=== PATIENT | female | born 1995 | race Caucasian/White ===

== ENCOUNTER 2021-05-22 15:33 | Emergency (ER) | payer BC, SELFPAY ==
[2021-05-22 16:03] VITALS: BP 138/92; PULSE 120; RESP 16; TEMP 36.7; O2SAT 100; BMI 35.4
--- NOTE | 2021-05-22 19:10 | ED_ITS ---
HPI - Female Genitourinary General: Chief complaint: Urogenital-Female Stated complaint: Bulge in gental area after bowel movement Time Seen by Provider: 05/22/21 19:09 History of Present Illness: Ms. Malik is a 25-year-old lady with history of diabetes and three previous childbirths who presents emerged department due to genital complaint. She reports being in her baseline health and is supposed to start her period 2 days ago. She had light spotting over the past few days and then heavier bleeding today associated with cramping which she believed to be the start of her period. She was in the bathroom earlier and had the urge to defecate. She removed a tampon and had sudden onset of worsening pain in addition to feeling a pressure and bulge sensation. She reached down and felt a bulge externally which is new for her. She had her [id number] look and she saw a bulge and thought it looked like the [id number] history of bladder prolapse. Since that time she has had moderate intensity generalized aching and cramping in the abdomen. Some radiation to the back. Denies similar episodes in the past. Denies other recent changes in health, exacerbating, or relieving factors. She has not had bowel movement or urination since this time. Onset (ago): hour(s) Location of symptoms: vaginal Severity: severe Quality of pain: cramping and aching Consistency: intermittent Vaginal bleeding: scant Associated symptoms: Reports headache(s) Patient : No Date of Last Menstrual Period: 05/17/21 Review of Systems General: Reports: 10 or more systems reviewed and unremarkable except in HPI and below Neuro: Reports: headache(s) PFSH ED PFSH: Medical History Diabetes Social History Smoking and tobacco status: never smoked Female Reproductive History: Date of last menstrual period: 05/17/21 Physical Exam Const: COMMON NORMALS: alert GENERAL APPEARANCE: cooperative and well developed HENMT: COMMON NORMALS: normocephalic and atraumatic HEAD & SCALP: normocephalic and atraumatic Eye: COMMON NORMALS: conjunctivae normal CONJUNCTIVA: Yes conjunctivae normal SCLERA: sclerae normal Neck/C-Spine: COMMON NORMALS: supple GENERAL: Yes trachea midline Resp: COMMON NORMALS: normal respiratory effort EFFORT & INSPECTION: Yes able to speak in complete sentences Cardio: COMMON NORMALS: regular rate and regular rhythm RATE: regular rate RHYTHM: regular rhythm GI: COMMON NORMALS: Soft to palpation PALPATION: Yes Soft to palpation, Yes Tenderness to palpation present (GI) (Mild lower abdomen), No Guarding due to palpation present (GI) and No Rigid due to palpation PERCUSSION: normal to percussion : OTHER: Performed with pool lifeguard present. The patient did not have identifiable bulge though she does report that she felt like it had reduced. There is some blood in the vaginal vault. No bleeding identified from cervical os and the os appears closed. There are no identified tears of the vaginal wall. No evidence of prolapse with Valsalva. Extremity: GENERAL: Yes normal exam except as noted and No edema Neuro: COMMON NORMALS: moves all extremities SENSORIUM/ORIENTATION: Yes alert and No Orientation impaired Psych: COMMON NORMALS: mental status grossly normal and Normal thought process present THOUGHT PROCESS: Normal thought process present Course ED course: - Patient was seen and evaluated by me at bedside - Patient placed on cardiac monitors, IV access obtained - Initial evaluation notable for exam as above -Analgesia ordered - Labs notable for mild leukocytosis. Metabolic panel with perhaps mild evidence of dehydration. Urinalysis likely contaminated by vaginal bleeding and squamous epithelial cells. - Performed pelvic exam as noted above. Discussed with MORTGAGE LOAN PROCESSOR on-call. Patient is young for pelvic organ prolapse. Without significant abdominal tenderness or other acute abnormality routine imaging is not typically done. I discussed this with the patient, she is comfortable deferring imaging at this time. I will plan on messaging case management for FORMING ROLL OPERATOR [employer] follow-up [place] - Upon serial reexamination after treatment the patient was improved. - Based on patient history, evaluation, labs, and imaging as interpreted the most likely cause of the patient's condition is unclear, history is certainly consistent with pelvic organ prolapse which reduced however patient is young for this. - The results of ED evaluation were discussed with the patient including prescriptions and/or symptomatic cares (if applicable) including appropriate and responsible use, followup plan, and return precautions. The patient verbalized understanding and felt safe for discharge. - Patient discharged in satisfactory condition. Note: Click bubbles or prepopulated etienne in note writing are used for assistance with data collection and billing and are inherently more limited than narrative and other text portions of this note. Please use narrative for additional clinical history and defer to narrative/free test for any case of contradictory information. If information appears in only free text or click bubble it should be considered present or absent as reported. Please contact note com writer for clarifications of clinical information or contradictory information. MDM is a brief summary, contradictory or erroneous seeming information should be clarified and full note should be reviewed. Vital Signs: Vital signs: Vital Signs Temperature 98.1 F 05/22/21 16:03 Pulse Rate 120 H 05/22/21 16:03 Respiratory Rate 17 05/22/21 20:03 Blood Pressure 138/92 05/22/21 16:03 Pulse Oximetry 100 05/22/21 16:03 MDM - Female Medical Decision Making 25-year-old lady presenting with vaginal bleeding and a bulge with pain after removing a tampon. This spontaneously reduced prior to pelvic exam with improvement in symptoms. Discussed with FORMING ROLL OPERATOR HEAVY DUTY. Patient satisfactory for follow- up with FORMING ROLL OPERATOR [employer] service in the outpatient setting. Medical Records I reviewed the patient's medical records. Lab Data I reviewed the patient's lab results. : 05/22/21 19:15 05/22/21 20:24 Laboratory Results WBC 12.1 10^3/uL (4.0-10.0) H 05/22/21 19:15 RBC 4.71 10^6/uL (4.1-5.3) 05/22/21 19:15 Hgb 13.7 g/dL (11.5-15.3) 05/22/21 19:15 Hct 41.5 % (37.0-47.0) 05/22/21 19:15 MCV 88.1 fl (81-99) 05/22/21 19:15 MCH 29.1 pg (28.0-34.0) 05/22/21 19:15 MCHC 33.0 g/dL (30.0-36.0) 05/22/21 19:15 RDW 12.4 % (12.1-15.1) 05/22/21 19:15 Plt Count 464 10^3/cmm (130-400) H 05/22/21 19:15 MPV 9.4 fL (7.4-10.4) 05/22/21 19:15 Neut % (Auto) 73.8 % 05/22/21 19:15 Lymph % (Auto) 20.4 % 05/22/21 19:15 [place] % (Auto) 5.0 % 05/22/21 19:15 Eos % (Auto) 0.2 % 05/22/21 19:15 Baso % (Auto) 0.4 % 05/22/21 19:15 Neut # (Auto) 8.94 10^3/uL (1.8-7.7) H 05/22/21 19:15 Lymph # (Auto) 2.5 10^3/uL (0.8-4.8) 05/22/21 19:15 [place] # (Auto) 0.6 10^3/uL (0.2-0.9) 05/22/21 19:15 Eos # (Auto) 0.0 10^3/uL (0.0-0.8) 05/22/21 19:15 Baso # (Auto) 0.1 10^3/uL (0.0-0.1) 05/22/21 19:15 Nucleated RBC % (auto) 0 % 05/22/21 19:15 Nucleated RBCs # 0.0 /100WBC 05/22/21 19:15 Sodium 134 mmol/L (136-145) L 05/22/21 20:24 Potassium 4.1 mmol/L (3.5-5.1) 05/22/21 20:24 Chloride 103 mmol/L (98-107) 05/22/21 20:24 Carbon Dioxide 18 mmol/L (22-29) L 05/22/21 20:24 Anion Gap 17.1 (5-19) 05/22/21 20:24 BUN 15 mg/dL (6-20) 05/22/21 20:24 Creatinine 0.7 mg/dL (0.5-0.9) 05/22/21 20:24 GFR Calculation 102.0 mL/min (90-130) 05/22/21 20:24 Glucose 105 mg/dL (65-115) 05/22/21 20:24 Calculated Osmolality 279 mOsm/kg (285-295) L 05/22/21 20:24 Calcium 10.2 mg/dL (8.5-10.5) 05/22/21 20:24 Total Bilirubin 0.5 mg/dL (0.15-1.2) 05/22/21 20:24 AST 21 U/L (0-32) 05/22/21 20:24 ALT 32 U/L (0-33) 05/22/21 20:24 Alkaline Phosphatase 56 IU/L (35-105) 05/22/21 20:24 Total Protein 8.1 g/dL (6.6-8.7) 05/22/21 20:24 Albumin 4.9 g/dL (3.5-5.2) 05/22/21 20:24 Globulin 3.2 g/dL (1.3-4.6) 05/22/21 20:24 Lipase 30 U/L (13-60) 05/22/21 20:24 HCG, Qual Negative (Negative) 05/22/21 19:58 Urine Color Red (Yellow) 05/22/21 19:58 Urine Appearance Bloody (CLEAR) A 05/22/21 19:58 Urine pH 5 (5-7) 05/22/21 19:58 Ur Specific [place] 1.020 (1.005-1.030) 05/22/21 19:58 Urine Protein 2+ (Negative) H 05/22/21 19:58 Urine Glucose (UA) Norm (Normal) 05/22/21 19:58 Urine Ketones Negative (Negative) 05/22/21 19:58 Urine Blood 3+ (Negative) H 05/22/21 19:58 Urine Nitrate Negative (Negative) 05/22/21 19:58 Urine Bilirubin Neg (Negative) 05/22/21 19:58 Urine Urobilinogen Norm mg/dL (Negative) 05/22/21 19:58 Ur Leukocyte Esterase Trace (Negative) H 05/22/21 19:58 Urine RBC >100 /hpf (0-2) H 05/22/21 19:58 Urine WBC 25-40 /hpf (0-5) H 05/22/21 19:58 Ur Squamous Epith Cells 25-40 /hpf (0-5) H 05/22/21 19:58 Amorphous Sediment Not Reportable 05/22/21 19:58 Urine Bacteria Trace /hpf (NONE) 05/22/21 19:58 Discharge Plan Discharge Patient Disposition: Home Clinical Impression: Prolapse of female pelvic organs Condition: Stable Discharge Orders: Discharge ED (Routine); Ordered 05/22/21 Ordered By: Mike Monroy Discharge Diet: Usual diet Discharge Activity: Limit activity as instructed Activity Restrictions/Additional Instructions: Thank you for visiting the emergency department. You were seen and evaluated for a protruding mass and pelvic/abdominal pain. The exact cause of your symptoms is unclear. As discussed it is possible to have pelvic organ prolapse however this does require further evaluation by FORMING ROLL OPERATOR [employer]. I will message our caser up for follow-up with FORMING ROLL OPERATOR [employer]. Please return to the emergency department for worsening pain, heavy bleeding, lightheadedness, dizziness, any blood in your stool, inability to have bowel movements or urinate, or anything else that you are concerned about a feel needs emergency department evaluation. I recommend a stool softener and not straining with bowel movements, you may get this [id number]. 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
--- NOTE | 2021-05-22 19:21 | PC.NURSE ---
patient arrival with c/o spotting for 5 days then today the bleeding became enough to soak through clothing. denies problems with previous menses. states a family member looked adn it appears there is something in vaginal vault. states all tampons were removed. reports pelvic pain and back pain along with abdominal cramping. denies N/V/D. last child born 06/01
--- NOTE | 2021-05-22 19:46 | PC.NURSE ---
ambulatory to restroom
[2021-05-22 19:50] LABS: Basophils # 0.1 10^3/uL (0.0-0.1); Basophils % 0.4 %; Eosinophils % 0.2 %; Hematocrit 41.5 % (37.0-47.0); Hemoglobin 13.7 g/dL (11.5-15.3); Lymphocytes # 2.5 10^3/uL (0.8-4.8); Lymphocytes % 20.4 %; Mean Corpuscular Hemoglobin 29.1 pg (28.0-34.0); Mean Corpuscular Volume 88.1 fl (81-99); Mean Platelet Volume 9.4 fL (7.4-10.4); Monocytes # 0.6 10^3/uL (0.2-0.9); Neutrophils # 8.94 10^3/uL (1.8-7.7); Neutrophils % 73.8 %; Nucleated Red Blood Cells % 0 %; Platelet Count 464 10^3/cmm (130-400); Red Blood Count 4.71 10^6/uL (4.1-5.3); Red Cell Distribution Width 12.4 % (12.1-15.1); White Blood Count 12.1 10^3/uL (4.0-10.0)
[2021-05-22 20:03] VITALS: RESP 17
[2021-05-22] MEDS: fentaNYL 50 mcg/mL INJ 2mL IVP (20:03)
[2021-05-22] MEDS: ondansetron 2 mg/ML SDV 2 mL 4 MG IVP (20:04)
[2021-05-22 20:15] LABS: HCG Qualitative Urine. Negative (Negative)
[2021-05-22 20:32] LABS: Bilirubin Urine Neg (Negative); Blood Urine 3+ (Negative); Glucose Urine UA Norm (Normal); Ketones Urine Negative (Negative); Leukocyte Esterase Urine Trace (Negative); Nitrate Urine Negative (Negative); Protein Urine 2+ (Negative); Urine Appearance Bloody (CLEAR); Urine Color Red (Yellow); Urobilinogen Urine Norm (Negative); pH Urine 5 (5-7)
[2021-05-22 20:33] LABS: Add Urine Microscopic? YES; Bacteria Urine TRACE /hpf; RBC Urine >100 /hpf (0-2); Squamous Epithelial Cell Urine 25-40 /hpf (0-5); WBC Urine 25-40 /hpf (0-5)
[2021-05-22 20:59] LABS: Alanine Aminotransferase 32 U/L (0-33); Albumin Level 4.9 g/dL (3.5-5.2); Alkaline Phosphatase 56 IU/L (35-105); Anion Gap 17.1 (5-19); Aspartate Amino Transferase 21 U/L (0-32); Blood Urea Nitrogen 15 mg/dL (6-20); Calcium 10.2 mg/dL (8.5-10.5); Carbon Dioxide 18 mmol/L (22-29); Chloride 103 mmol/L (98-107); Globulin 3.2 g/dL (1.3-4.6); Glucose 105 mg/dL (65-115); Lipase 30 U/L (13-60); Osmolality Calculated 279 mOsm/kg (285-295); Potassium 4.1 mmol/L (3.5-5.1); Sodium 134 mmol/L (136-145); Total Bilirubin 0.5 mg/dL (0.15-1.2); Total Protein 8.1 g/dL (6.6-8.7)
--- NOTE | 2021-05-26 15:25 | DCPLANNER ---
Addendum entered by Yvonne Rivas 06/24/21 08:35: merchandise flow manager spoke with Arnel at [facility]. merchandise flow manager was told that patient was unable to reach patient. A letter was sent to patient to call clinic when they wanted to schedule an appointment. Original Note: merchandise flow manager had message to schedule a follow up appointment for patient with [facility]. merchandise flow manager called the [facility], spoke with Arnel, gave clinic patients information. merchandise flow manager was told that patients information would be printed and reviewed. Clinic will call patient with appointment information.
== END 2021-05-22 21:24 | disposition home or self-care (01) ==
PROVIDERS: Emergency Medicine; Emergency Provider Emergency Medicine
DX: N81.9 Female genital prolapse, unspecified (principal); E11.9 Type 2 diabetes mellitus without complications
CPT/HCPCS: 36415; 80053; 81001; 81025; 83690; 85025; 96374; 96375; 99284; J2405; J3010